=== PATIENT | female | born 1955 | race Hispanic/Latino ===

== ENCOUNTER → 2016-05-01 | Outpatient (CLI) | payer BC ==
--- NOTE | 2016-05-01 14:38 | MAM ---
EXAM DESCRIPTION: MAMMO BREAST SCREENING BILATERAL CAD, images were reviewed with CAD technology, R2 computer-aided detection. CLINICAL HISTORY: [facility]. COMPARISON: No prior study is currently available. FINDINGS: Routine views are obtained. Scattered glandular pattern. No dominant mass, architectural distortion or clustered microcalcification.. IMPRESSION: Benign exam. BIRAD CATEGORY: 2 BENIGN RECOMMENDATIONS: FOLLOW-UP: Routine screening mammogram in one year. According to the [employer], yearly mammograms are recommended starting at age 40 and continuing as long as a woman is in good health. Any breast change noted on a breast self-exam should be reported promptly to the patient's healthcare provider. Breast MRI is recommended for women with an approximately 20-25% or greater lifetime risk of breast cancer, including women with a strong family history of breast or ovarian cancer and women who have been treated for Hodgkin's disease. Electronically signed by: Sheila Reyna 05/01/2016 14:36
== END ==
LOC: MAMMO 08:44
PROVIDERS: ATTEND General Practice
DX: Z12.31 Encounter for screening mammogram for malignant neoplasm of breast (principal); I10 Essential (primary) hypertension; Z00.00 Encounter for general adult medical examination without abnormal findings

== ENCOUNTER 2017-08-04 10:15 | Emergency (ER) | payer SELFPAY ==
[2017-08-04 10:34] VITALS: TEMP 98.3; O2SAT 95
--- NOTE | 2017-08-04 11:14 | ED.PDOC ---
History of Present Illness - General Chief Complaint: Eye Problems Stated Complaint: R eye/face tingling, draining Time Seen by Provider: 08/04/17 10:37 Source: patient Exam Limitations: no limitations - History of Present Illness Initial Comments: The patient is a 61-year-old female presenting to the emergency room secondary to severe pain in the V2 distribution to the right side of her face approximately 48 hours. There are no vesicles on the scan and she has not had shingles in this distribution before. She has had shingles on her thorax before. She does appear to have some vesicles forming in her right nares. She has exquisite tenderness to palpation along the V2 distribution. There does not appear to be any motor deficits. No hearing changes. No taste changes. Pain comes in paroxysmal. No definite fevers. Timing/Duration: unsure Severity: severe Improving Factors: nothing Worsening Factors: nothing Associated Symptoms: denies symptoms Allergies/Adverse Reactions: Allergies NO KNOWN ALLERGY Allergy (Verified 08/04/17 10:37) Home Medications: Ambulatory Orders Carbamazepine 200 mg PO Q8HR #20 tab 08/04/17 Valacyclovir HCl [Valtrex] 1 gm PO Q8HR #20 tab 08/04/17 Review of Systems - Review of Systems Constitutional: States: malaise EENTM: States: see HPI Respiratory: States: no symptoms reported Cardiology: States: no symptoms reported Gastrointestinal/Abdominal: States: no symptoms reported Genitourinary: States: no symptoms reported Musculoskeletal: States: no symptoms reported Skin: States: no symptoms reported Neurological: States: see HPI Endocrine: States: no symptoms reported All other Systems: No Change from Baseline Past Medical History (General) - Patient Medical History Hx Stroke: No Hx Congestive Heart Failure: No Hx Diabetes: No Surgical History: no surgical history - Vaccination History Hx Influenza Vaccination: No Hx Pneumococcal Vaccination: No - Social History Hx Tobacco Use: No - Female History Patient is a Female of Child Bearing Age (10 -59 yrs old): No Family Medical History - Family History Mother Living Status: Hx Cardiac Disease: Yes Physical Exam - Physical Exam General Appearance: Alert, Comfortable, No apparent distress Eye Exam: bilateral normal Ears, Nose, Throat: hearing grossly normal, normal pharynx, other - see history of present illness Neck: full range of motion, supple Respiratory: no respiratory distress, no accessory muscle use Cardiovascular/Chest: normal peripheral pulses, no edema, other - egular rate Peripheral Pulses: radial,right: 2+, radial,left: 2+ Rectal Exam: deferred Back Exam: normal inspection, no CVA tenderness Extremity: normal range of motion, non-tender, normal inspection, no pedal edema , normal capillary refill Neurologic: alert, normal mood/affect, oriented x 3, other - see history of present illness Skin Exam: normal color Comments: Vital Signs - 24 hr 08/04/17 10:29 Temperature 98.3 F Pulse Rate [ 72 Left Radial] Respiratory 20 Rate O2 Sat by Pulse 95 Oximetry Progress - Progress Progress: 08/04/17 11:15 the patient is a 61-year-old female presenting to emergency room with what appears to be trigeminal neuralgia in the V2 distribution on the right with likely associated vesicle formation in the right distal nares. The patient will be covered with Valtrex 1 g every 8 hours for 7 days and carbamazepine 200 mg 3 times daily for the next 7 days as well. She does need to be careful as these can cause some drowsiness. She needs to follow-up with her primary care doctor in a couple of days. So far no vesicle formation has formed on the skin, only in the nares. Ibuprofen additionally may help reduce discomfort some. She needs to keep herself well-hydrated. ER warnings were given. there does not appear to be any ocular involvement or any evidence of meningitis or encephalitis at this time. 08/04/17 11:17 Departure - Departure Clinical Impression: Trigeminal neuralgia of right side of face Disposition: Discharge to Home or Self Care Condition: Fair Departure Forms: ED Discharge - Pt. Copy, Patient Portal Self Enrollment Instructions: DI for Trigeminal Neuralgia Diet: regular diet Activity: increase activity as tolerated Referrals: Aaron Jennings MD [Primary Care Provider] - 1-2 Weeks Prescriptions: Carbamazepine 200 mg PO Q8HR #20 tab Valacyclovir HCl [Valtrex] 1 gm PO Q8HR #20 tab Home Medications: Ambulatory Orders Carbamazepine 200 mg PO Q8HR #20 tab 08/04/17 Valacyclovir HCl [Valtrex] 1 gm PO Q8HR #20 tab 08/04/17 Additional Instructions: the patient is a 61-year-old female presenting to emergency room with what appears to be trigeminal neuralgia in the V2 distribution on the right with likely associated vesicle formation in the right distal nares. The patient will be covered with Valtrex 1 g every 8 hours for 7 days and carbamazepine 200 mg 3 times daily for the next 7 days as well. She does need to be careful as these can cause some drowsiness. She needs to follow-up with her primary care doctor in a couple of days. So far no vesicle formation has formed on the skin, only in the nares. Ibuprofen additionally may help reduce discomfort some. She needs to keep herself well-hydrated. ER warnings were given. there does not appear to be any ocular involvement or any evidence of meningitis or encephalitis at this time.
[2017-08-04] MEDS: carBAMazepine 200 MG TAB PO ONE (11:34)
[2017-08-04 11:59] VITALS: BP 166/89
== END 2017-08-04 11:27 | disposition home or self-care (01) ==
LOC: ER 10:15
DX: G50.0 Trigeminal neuralgia (principal)